=== PATIENT | male | born 1960 | race Asian ===

== ENCOUNTER → 2016-12-11 | Outpatient (CLI) | payer BC ==
[~2016-12-11] MED LIST: /CLON2TA PO; ALPR1TAB3 OR; AMLO10TAB OR; ASPI325T OR; ASPI81TA7 PO; BACT2CRE EX; BACT800T OR; COZA100T2 PO; DILA2TAB OR; FERR325T OR; FOLI1TAB OR; GLUC500T PO; HUMA100I SC; HYDR25TA6 OR; IBUP800T OR; IBUP80TA PO; LEVO750T PO; LISI20TA5 OR; LOPR50TA PO; LOSA50TA20 PO; TYLENOL COLD & FLU PO; [UNRECOGNIZED DRUG - OTHER] EXT
[2016-12-11 06:43] LABS: MEAN CORPUSCULAR HEMOGLOBIN 32.4 pg (27.0-33.0); MEAN CORPUSCULAR HGB CONC 35.5 g/dl (32.0-36.5); MEAN CORPUSCULAR VOLUME 91.2 fl (80.0-96.0); RED CELL DISTRIBUTION WIDTH 11.6 % (11.5-14.5); WHITE BLOOD COUNT 4.1 K/mm3 (4.0-10.0)
[2016-12-11 07:02] LABS: ALBUMIN 4.3 GM/DL (3.2-5.2); ALBUMIN/GLOBULIN RATIO 1.59 (1.00-1.93); BILIRUBIN,TOTAL 0.9 MG/DL (0.2-1.0); CALCIUM LEVEL 9.6 MG/DL (8.5-10.1); CREATININE FOR GFR 1.49 MG/DL (0.70-1.30); GLOMERULAR FILTRATION RATE 51.9 (>56); POTASSIUM SERUM 4.2 MEQ/L (3.5-5.1)
== END ==
LOC: M LAB 06:08
PROVIDERS: ATTEND Student in an Organized Health Care Education/Training Program
DX: Z76.89 Persons encountering health services in other specified circumstances (principal)

== ENCOUNTER → 2016-12-16 | Outpatient (CLI) | payer BC ==
[2016-12-16 14:29] LABS: CALCIUM LEVEL 8.6 MG/DL (8.5-10.1); CREATININE FOR GFR 1.34 MG/DL (0.70-1.30); GLOMERULAR FILTRATION RATE 58.7 (>56); POTASSIUM SERUM 4.2 MEQ/L (3.5-5.1)
== END ==
LOC: M LAB 13:58
PROVIDERS: ATTEND Student in an Organized Health Care Education/Training Program
DX: N17.9 Acute kidney failure, unspecified (principal)

== ENCOUNTER → 2016-12-25 | Outpatient (CLI) | payer BC ==
[2016-12-25 12:46] LABS: ALBUMIN 4.5 GM/DL (3.2-5.2); ALBUMIN/GLOBULIN RATIO 1.96 (1.00-1.93); ALKALINE PHOSPHATASE 81 U/L (45-117); ALT/SGPT 49 U/L (12-78); ANION GAP 8 MEQ/L (8-16); AST/SGOT 35 U/L (15-37); BILIRUBIN,TOTAL 0.8 MG/DL (0.2-1.0); BLOOD UREA NITROGEN 14 MG/DL (7-18); CALCIUM LEVEL 9.4 MG/DL (8.5-10.1); CARBON DIOXIDE LEVEL 28 MEQ/L (21-32); CHLORIDE LEVEL 104 MEQ/L (98-107); CREATININE FOR GFR 0.95 MG/DL (0.70-1.30); GLOMERULAR FILTRATION RATE > 60.0 (>56); GLUCOSE, FASTING 213 MG/DL (70-105); POTASSIUM SERUM 4.3 MEQ/L (3.5-5.1); SODIUM LEVEL 140 MEQ/L (136-145); TOTAL PROTEIN 6.8 GM/DL (6.4-8.2)
== END ==
LOC: M LAB 11:23
PROVIDERS: ATTEND Student in an Organized Health Care Education/Training Program
DX: Z79.899 Other long term (current) drug therapy (principal)

== ENCOUNTER → 2017-01-22 | Outpatient (CLI) | payer BC ==
[2017-01-22 09:59] LABS: ANION GAP 11 MEQ/L (8-16); BLOOD UREA NITROGEN 25 MG/DL (7-18); CALCIUM LEVEL 9.3 MG/DL (8.5-10.1); CARBON DIOXIDE LEVEL 26 MEQ/L (21-32); CHLORIDE LEVEL 106 MEQ/L (98-107); CREATININE FOR GFR 1.11 MG/DL (0.70-1.30); GLOMERULAR FILTRATION RATE > 60.0 (>56); GLUCOSE, FASTING 154 MG/DL (70-105); POTASSIUM SERUM 4.2 MEQ/L (3.5-5.1); SODIUM LEVEL 143 MEQ/L (136-145)
== END ==
LOC: M LAB 09:13
PROVIDERS: ATTEND Student in an Organized Health Care Education/Training Program
DX: I10 Essential (primary) hypertension (principal)

== ENCOUNTER 2017-04-08 18:50 | Emergency (ER) | payer BC ==
[~2017-04-08] VITALS: Ht 190.5 cm; Wt 120.2 kg
[2017-04-08] MEDS ORDERED: METO50TA2 PO (19:03)
[2017-04-08] MEDS ORDERED: ASPI81CH PO (19:03)
--- NOTE | 2017-04-08 20:10 | REPUSA ---
CT of the head Clinical history: Headache, injury. Technique: Multiple axial CT images were obtained through the head without administration of contrast . Comparison: None. Findings: The ventricles and sulci are symmetric bilaterally. There is no evidence of acute hemorrhag e or infarct. There is no midline shift, mass effect, or extra-axial fluid collection. The osseous st ructures are unremarkable. The visualized paranasal sinuses and mastoid air cells are clear There is a large amount of superficial soft tissue swelling the frontal regions bilaterally, extending into th e right lateral frontal region. Impression: No evidence of acute intracranial hemorrhage or infarct. Extensive superficial soft tissu e swelling in the frontal regions bilaterally, extending into the right lateral frontal region.
--- NOTE | 2017-04-08 20:10 | REPUSA ---
CT of the orbits and facial bones without contrast Clinical history: Pain, injury. Technique: Multiple axial CT images were obtained through the facial bones and paranasal sinuses util izing 3 mm axial slices without administration of contrast. Coronal and sagittal reconstructions were also obtained. Findings: The visualized paranasal sinuses are clear. The osteomeatal complexes are patent bilaterall y. The nasal septum is midline. The visualized mastoid air cells are clear. The osseous structures do not demonstrate any acute abnormalities. The superficial soft tissues are diffusely swollen in the f rontal regions bilaterally, with soft tissue swelling extending along the right frontal region as wel l. Extensive soft tissue swelling is seen around the right orbit, extending into the right maxillary region. The globes are intact bilaterally. Impression: 1. No acute fracture. The orbits are intact. 2. Extensive superficial soft tissue swelling in the frontal regions bilaterally, as well as extendin g around the right orbit and right maxillary regions.
[2017-04-08 20:51] VITALS: BP 160/70
== END 2017-04-08 20:56 | disposition home or self-care (01) ==
LOC: M ED 20:47
DX: S05.11XA Contusion of eyeball and orbital tissues, right eye, initial encounter (principal); W10.9XXA Fall (on) (from) unspecified stairs and steps, initial encounter; Y92.019 Unspecified place in single-family (private) house as the place of occurrence of the external cause; Y93.H9 Activity, other involving exterior property and land maintenance, building and construction; Y99.8 Other external cause status; Z79.82 Long term (current) use of aspirin; Z79.899 Other long term (current) drug therapy; Z88.0 Allergy status to penicillin

== ENCOUNTER 2017-04-10 01:44 | Emergency (ER) | payer BC ==
[~2017-04-10] VITALS: Ht 190.5 cm; Wt 120.2 kg
[~2017-04-10 01:44] MED LIST changes: +ASPI81CH PO; +METO50TA2 PO
[2017-04-10 01:55] VITALS: BP 147/92
[2017-04-10] MEDS ORDERED: ASPI325T28 PO (01:58)
[2017-04-10] MEDS ORDERED: METF1000 PO (01:59)
[2017-04-10] MEDS ORDERED: LISI10TA4 PO (02:00)
[2017-04-10] MEDS ORDERED: AMLO10TA2 PO (02:00)
[2017-04-10] MEDS ORDERED: TAB-TAB PO (02:01)
== END 2017-04-10 06:24 | disposition left against medical advice (07) ==
LOC: M ED 02:57
DX: Z53.29 Procedure and treatment not carried out because of patient's decision for other reasons (principal)

== ENCOUNTER 2018-07-15 05:05 | Observation (INO) | payer BC ==
[2018-07-15] MEDS: ONDANSETRON 4MG/2ML VIAL (J2405) IV (06:00)
[2018-07-15] MEDS: LORazepam 2 MG/ML VIAL (J2060) IV ×3 (06:00→07:03)
[2018-07-15] MEDS: NS 1,000 ML IV ×3 (06:00→22:15)
[2018-07-15] MEDS: THIAMINE HCL 200 MG/2 ML VIAL (J3411) IV (06:00)
[2018-07-15] MEDS: OXAZEPAM 15 MG CAP PO (06:01)
[2018-07-15 06:06] LABS: ALBUMIN 4.6 GM/DL (3.2-5.2); ALBUMIN/GLOBULIN RATIO 1.35 (1.00-1.93); ALKALINE PHOSPHATASE 68 U/L (45-117); ALT/SGPT 140 U/L (12-78); ANION GAP 15 MEQ/L (8-16); AST/SGOT 211 U/L (7-37); BILIRUBIN,DIRECT 0.5 MG/DL (0.0-0.2); BILIRUBIN,TOTAL 1.1 MG/DL (0.2-1.0); BLOOD UREA NITROGEN 13 MG/DL (7-18); CALCIUM LEVEL 9.1 MG/DL (8.5-10.1); CARBON DIOXIDE LEVEL 24 MEQ/L (21-32); CHLORIDE LEVEL 96 MEQ/L (98-107); CREATININE FOR GFR 1.22 MG/DL (0.70-1.30); ETHYL ALCOHOL (ETHANOL) 0.094 % (0.000-0.010); GLOMERULAR FILTRATION RATE > 60.0 (>56); GLUCOSE, FASTING 207 MG/DL (70-100); LIPASE 502 U/L (73-393); POTASSIUM SERUM 3.5 MEQ/L (3.5-5.1); SODIUM LEVEL 135 MEQ/L (136-145)
[2018-07-15 06:10] LABS: BASO % 0.2 % (0.0-1.0); EOS # 0.1 10^3/uL (0.0-0.50); EOS % 1.7 % (0.0-3.0); HEMATOCRIT 40.8 % (42.0-52.0); HEMOGLOBIN 14.2 g/dl (13.5-17.5); IMMATURE GRANULOCYTE % 1.3 % (0-3.0); LYMPH # 0.6 10^3/uL (1.5-4.5); MEAN CORPUSCULAR HEMOGLOBIN 32.2 pg (27.0-33.0); MEAN CORPUSCULAR HGB CONC 34.8 g/dl (32.0-36.5); MEAN CORPUSCULAR VOLUME 92.5 fl (80.0-96.0); MONO # 0.6 10^3/uL (0.0-0.8); MONO % 12.1 % (0.0-5.0); NEUTROPHILS # 3.4 10^3/uL (1.8-7.7); NEUTROPHILS % 71.7 % (36.0-66.0); PLATELET COUNT, AUTOMATED 130 10^3/uL (150-450); RED BLOOD COUNT 4.41 10^6/uL (4.30-6.10); RED CELL DISTRIBUTION WIDTH 12.6 % (11.5-14.5); WHITE BLOOD COUNT 4.7 10^3/uL (4.0-10.0)
[2018-07-15 08:20] LABS: AMPHETAMINES LEVEL URINE NEGATIVE (NEGATIVE); BARBITURATES URINE NEGATIVE (NEGATIVE); BENZODIAZEPINES URINE NEGATIVE (NEGATIVE); CANNABINOIDS URINE NEGATIVE (NEGATIVE); COCAINE METABOLITE URINE NEGATIVE (NEGATIVE); METHADONE URINE NEGATIVE (NEGATIVE); OPIATES URINE NEGATIVE (NEGATIVE); PHENCYCLIDINE URINE NEGATIVE (NEGATIVE)
[2018-07-15] MEDS ORDERED: amLODIPine 5 MG TAB PO (09:00)
[2018-07-15] MEDS: SENOKOT S TAB PO ×2 (09:00→20:20)
[2018-07-15] MEDS: amLODIPine 5 MG TAB PO ×2 (09:00→10:30)
[2018-07-15] MEDS: ENOXAPARIN 40 MG/0.4 ML SYRINGE (J1650) SC (09:00)
[2018-07-15] MEDS ORDERED: DEXTROSE 50% 50 ML SYRINGE IV (10:15)
[2018-07-15] MEDS ORDERED: GLUCOSE 4 GM CHEW TABLET PO (10:15)
[2018-07-15] MEDS ORDERED: GLUCAGON FOR INJ 1 MG VIAL (J1610) SC (10:15)
[2018-07-15] MEDS ORDERED: BISACODYL 5 MG TAB PO (10:30)
[2018-07-15] MEDS: THIAMINE 100 MG TAB PO ×2 (10:31→20:20)
[2018-07-15] MEDS: MULTIVITAMINS/MINERALS THERAP 1 TAB PO (10:31)
[2018-07-15] MEDS: FOLIC ACID 1 MG TAB PO (10:31)
[2018-07-15 12:02] LABS: BEDSIDE GLUCOSE 190 MG/DL (70-105)
[2018-07-15] MEDS: LORazepam 2 MG TAB PO ×3 (12:09→14:29)
[2018-07-15] MEDS: HumaLOG INSULIN (NovoLOG) PER UNIT SC ×3 (12:10→20:20)
[2018-07-15] MEDS: LISINOPRIL 20 MG TAB PO (12:15)
[2018-07-15] MEDS ORDERED: LISINOPRIL 10 MG TAB PO (12:15)
[2018-07-15] MEDS: cloNIDine 0.1 MG TAB PO ×2 (13:00→22:00)
[2018-07-15 17:01] LABS: BEDSIDE GLUCOSE 175 MG/DL (70-105)
[2018-07-15] MEDS: NICOTINE 14 MG/24 HR TRANSDERMAL TD (18:41)
[2018-07-15 20:15] LABS: BEDSIDE GLUCOSE 280 MG/DL (70-105)
[2018-07-16] MEDS: LORazepam 2 MG TAB PO (01:21)
[2018-07-16] MEDS: amLODIPine 5 MG TAB PO ×2 (01:22→21:01)
[2018-07-16 05:42] LABS: HEMATOCRIT 33.7 % (42.0-52.0); MEAN CORPUSCULAR HEMOGLOBIN 32.3 pg (27.0-33.0); MEAN CORPUSCULAR HGB CONC 34.1 g/dl (32.0-36.5); MEAN CORPUSCULAR VOLUME 94.7 fl (80.0-96.0); PLATELET COUNT, AUTOMATED 101 10^3/uL (150-450); RED BLOOD COUNT 3.56 10^6/uL (4.30-6.10); RED CELL DISTRIBUTION WIDTH 12.8 % (11.5-14.5); WHITE BLOOD COUNT 3.8 10^3/uL (4.0-10.0)
[2018-07-16 05:48] LABS: HEMOGLOBIN 11.5 g/dl (13.5-17.5)
[2018-07-16 06:00] LABS: ALBUMIN 3.5 GM/DL (3.2-5.2); ALBUMIN/GLOBULIN RATIO 1.35 (1.00-1.93); ALKALINE PHOSPHATASE 48 U/L (45-117); ALT/SGPT 90 U/L (12-78); ANION GAP 11 MEQ/L (8-16); AST/SGOT 99 U/L (7-37); BILIRUBIN,TOTAL 1.1 MG/DL (0.2-1.0); BLOOD UREA NITROGEN 14 MG/DL (7-18); CALCIUM LEVEL 8.3 MG/DL (8.5-10.1); CARBON DIOXIDE LEVEL 26 MEQ/L (21-32); CHLORIDE LEVEL 102 MEQ/L (98-107); CREATININE FOR GFR 1.09 MG/DL (0.70-1.30); GLOMERULAR FILTRATION RATE > 60.0 (>56); GLUCOSE, FASTING 150 MG/DL (70-100); POTASSIUM SERUM 3.2 MEQ/L (3.5-5.1); SODIUM LEVEL 139 MEQ/L (136-145); TOTAL PROTEIN 6.1 GM/DL (6.4-8.2)
[2018-07-16] MEDS: cloNIDine 0.1 MG TAB PO ×3 (06:11→21:01)
[2018-07-16 06:29] LABS: MAGNESIUM LEVEL 1.6 MG/DL (1.8-2.4); PHOSPHORUS LEVEL 2.9 MG/DL (2.5-4.9)
[2018-07-16] MEDS: NICOTINE 14 MG/24 HR TRANSDERMAL TD (07:57)
[2018-07-16] MEDS: MAG SULF 1GM/100ML (MAG RUN) 1 GM in APPROPRIATE DILUENT 1 EA IV ×2 (07:57→09:00)
[2018-07-16] MEDS: FOLIC ACID 1 MG TAB PO (07:58)
[2018-07-16] MEDS: SENOKOT S TAB PO ×2 (07:58→21:01)
[2018-07-16] MEDS: POTASSIUM CHLORIDE 10 MEQ SR TABLET PO (07:58)
[2018-07-16] MEDS: THIAMINE 100 MG TAB PO ×2 (07:58→21:01)
[2018-07-16] MEDS: ENOXAPARIN 40 MG/0.4 ML SYRINGE (J1650) SC (07:58)
[2018-07-16] MEDS: LISINOPRIL 20 MG TAB PO (07:59)
[2018-07-16] MEDS: MULTIVITAMINS/MINERALS THERAP 1 TAB PO (07:59)
[2018-07-16] MEDS: METOPROLOL TART 50 MG TAB PO ×2 (07:59→21:01)
[2018-07-16] MEDS: HumaLOG INSULIN (NovoLOG) PER UNIT SC ×4 (08:00→21:09)
[2018-07-16] MEDS ORDERED: SLF 3 ML SYR IV (08:00)
[2018-07-16 11:53] LABS: BEDSIDE GLUCOSE 168 MG/DL (70-105)
[2018-07-16] MEDS: SLF 3 ML SYR IV ×2 (14:00→21:02)
[2018-07-16 16:54] LABS: BEDSIDE GLUCOSE 287 MG/DL (70-105)
[2018-07-16 21:00] LABS: BEDSIDE GLUCOSE 232 MG/DL (70-105)
[2018-07-17] MEDS: cloNIDine 0.1 MG TAB PO (05:33)
[2018-07-17] MEDS: SLF 3 ML SYR IV (05:34)
[2018-07-17 05:49] LABS: HEMATOCRIT 33.1 % (42.0-52.0); HEMOGLOBIN 11.3 g/dl (13.5-17.5); MEAN CORPUSCULAR HEMOGLOBIN 32.1 pg (27.0-33.0); MEAN CORPUSCULAR HGB CONC 34.1 g/dl (32.0-36.5); PLATELET COUNT, AUTOMATED 108 10^3/uL (150-450); RED BLOOD COUNT 3.52 10^6/uL (4.30-6.10); RED CELL DISTRIBUTION WIDTH 12.9 % (11.5-14.5); WHITE BLOOD COUNT 3.7 10^3/uL (4.0-10.0)
[2018-07-17 06:12] LABS: INR 0.98; PROTHROMBIN TIME 13.1 SECONDS (12.1-14.4)
[2018-07-17 06:13] LABS: PARTIAL THROMBOPLASTIN TIME 25.4 SECONDS (25.4-37.6)
[2018-07-17 06:14] LABS: ALBUMIN 3.4 GM/DL (3.2-5.2); ALBUMIN/GLOBULIN RATIO 1.26 (1.00-1.93); ALKALINE PHOSPHATASE 55 U/L (45-117); ALT/SGPT 73 U/L (12-78); ANION GAP 8 MEQ/L (8-16); AST/SGOT 69 U/L (7-37); BILIRUBIN,TOTAL 0.9 MG/DL (0.2-1.0); BLOOD UREA NITROGEN 14 MG/DL (7-18); CALCIUM LEVEL 8.6 MG/DL (8.5-10.1); CARBON DIOXIDE LEVEL 30 MEQ/L (21-32); CHLORIDE LEVEL 102 MEQ/L (98-107); CREATININE FOR GFR 1.08 MG/DL (0.70-1.30); GLOMERULAR FILTRATION RATE > 60.0 (>56); GLUCOSE, FASTING 164 MG/DL (70-100); POTASSIUM SERUM 3.7 MEQ/L (3.5-5.1); SODIUM LEVEL 140 MEQ/L (136-145); TOTAL PROTEIN 6.1 GM/DL (6.4-8.2)
[2018-07-17] MEDS: THIAMINE 100 MG TAB PO (08:00)
[2018-07-17] MEDS: POTASSIUM CHLORIDE 10 MEQ SR TABLET PO (08:00)
[2018-07-17] MEDS: FOLIC ACID 1 MG TAB PO (08:01)
[2018-07-17] MEDS: MULTIVITAMINS/MINERALS THERAP 1 TAB PO (08:01)
[2018-07-17] MEDS: LISINOPRIL 20 MG TAB PO (08:01)
[2018-07-17] MEDS: NICOTINE 14 MG/24 HR TRANSDERMAL TD (08:02)
[2018-07-17] MEDS: METOPROLOL TART 50 MG TAB PO (08:02)
[2018-07-17] MEDS: ENOXAPARIN 40 MG/0.4 ML SYRINGE (J1650) SC (08:02)
[2018-07-17] MEDS: SENOKOT S TAB PO (08:03)
[2018-07-17] MEDS: HumaLOG INSULIN (NovoLOG) PER UNIT SC (08:03)
[2018-07-17 09:13] LABS: ESTIMATED AVERAGE GLUCOSE 171 MG/DL (60-110); HEMOGLOBIN A1c 7.6 %
[2018-07-17] MEDS ORDERED: amLODIPine 10 MG TAB PO (21:00)
[2018-07-18] MEDS ORDERED: LISINOPRIL 10 MG TAB PO (09:00)
== END 2018-07-17 11:18 | disposition home or self-care (01) ==
LOC: M ED 05:05 → M ED INP 05:06 → M PCU 15:50
DX: F10.239 Alcohol dependence with withdrawal, unspecified (principal); K70.10 Alcoholic hepatitis without ascites; E87.8 Other disorders of electrolyte and fluid balance, not elsewhere classified; E87.6 Hypokalemia; E83.42 Hypomagnesemia; I16.0 Hypertensive urgency; E11.9 Type 2 diabetes mellitus without complications; Z88.0 Allergy status to penicillin
CPT/HCPCS: J2405

== ENCOUNTER → 2018-08-13 | Outpatient (REF) | payer BC ==
[2018-08-13 13:27] LABS: ANION GAP 9 MEQ/L (8-16); BLOOD UREA NITROGEN 24 MG/DL (7-18); CALCIUM LEVEL 9.3 MG/DL (8.5-10.1); CARBON DIOXIDE LEVEL 24 MEQ/L (21-32); CHLORIDE LEVEL 106 MEQ/L (98-107); CHOLESTEROL LEVEL 175 MG/DL (<200); CHOLESTEROL RISK RATIO 4.268 (<5); CREATININE FOR GFR 1.16 MG/DL (0.70-1.30); GLOMERULAR FILTRATION RATE > 60.0 (>56); GLUCOSE, FASTING 177 MG/DL (70-100); HDL CHOLESTEROL 41 MG/DL (>40); LDL CHOLESTEROL 117 MG/DL (<100); NON-HDL-C 134 MG/DL; POTASSIUM SERUM 5.2 MEQ/L (3.5-5.1); SODIUM LEVEL 139 MEQ/L (136-145); TRIGLYCERIDES LEVEL 84 MG/DL (<150)
[2018-08-13 13:29] LABS: BASO % 0.2 % (0.0-1.0); EOS # 0.3 10^3/uL (0.0-0.50); EOS % 4.7 % (0.0-3.0); HEMATOCRIT 37.5 % (42.0-52.0); HEMOGLOBIN 12.6 g/dl (13.5-17.5); IMMATURE GRANULOCYTE % 0.9 % (0-3.0); LYMPH # 0.9 10^3/uL (1.5-4.5); LYMPH % 16.3 % (24.0-44.0); MEAN CORPUSCULAR HEMOGLOBIN 31.3 pg (27.0-33.0); MEAN CORPUSCULAR HGB CONC 33.6 g/dl (32.0-36.5); MEAN CORPUSCULAR VOLUME 93.3 fl (80.0-96.0); MONO # 0.6 10^3/uL (0.0-0.8); MONO % 11.8 % (0.0-5.0); NEUTROPHILS # 3.5 10^3/uL (1.8-7.7); NEUTROPHILS % 66.1 % (36.0-66.0); PLATELET COUNT, AUTOMATED 199 10^3/uL (150-450); RED BLOOD COUNT 4.02 10^6/uL (4.30-6.10); RED CELL DISTRIBUTION WIDTH 12.2 % (11.5-14.5); WHITE BLOOD COUNT 5.3 10^3/uL (4.0-10.0)
[2018-08-13 15:12] LABS: ESTIMATED AVERAGE GLUCOSE 177 MG/DL (60-110); HEMOGLOBIN A1c 7.8 %
== END ==
LOC: M LABDRWAD 12:28
DX: Z00.00 Encounter for general adult medical examination without abnormal findings (principal)
CPT/HCPCS: 84443

== ENCOUNTER → 2018-09-03 | Outpatient (REF) | payer BC ==
[2018-09-03 14:08] LABS: BASO % 0.2 % (0.0-1.0); EOS # 0.2 10^3/uL (0.0-0.50); EOS % 3.2 % (0.0-3.0); HEMATOCRIT 35.9 % (42.0-52.0); HEMOGLOBIN 12.3 g/dl (13.5-17.5); IMMATURE GRANULOCYTE % 1.5 % (0-3.0); LYMPH # 1.2 10^3/uL (1.5-4.5); LYMPH % 18.3 % (24.0-44.0); MEAN CORPUSCULAR HEMOGLOBIN 31.3 pg (27.0-33.0); MEAN CORPUSCULAR HGB CONC 34.3 g/dl (32.0-36.5); MEAN CORPUSCULAR VOLUME 91.3 fl (80.0-96.0); MONO # 0.8 10^3/uL (0.0-0.8); MONO % 11.6 % (0.0-5.0); NEUTROPHILS # 4.3 10^3/uL (1.8-7.7); NEUTROPHILS % 65.2 % (36.0-66.0); PLATELET COUNT, AUTOMATED 238 10^3/uL (150-450); RED BLOOD COUNT 3.93 10^6/uL (4.30-6.10); RED CELL DISTRIBUTION WIDTH 12.1 % (11.5-14.5); WHITE BLOOD COUNT 6.6 10^3/uL (4.0-10.0)
[2018-09-03 14:36] LABS: ANION GAP 7 MEQ/L (8-16); BLOOD UREA NITROGEN 24 MG/DL (7-18); CALCIUM LEVEL 9.4 MG/DL (8.5-10.1); CARBON DIOXIDE LEVEL 27 MEQ/L (21-32); CHLORIDE LEVEL 102 MEQ/L (98-107); CHOLESTEROL LEVEL 177 MG/DL (<200); CHOLESTEROL RISK RATIO 5.531 (<5); CREATININE FOR GFR 1.37 MG/DL (0.70-1.30); GLOMERULAR FILTRATION RATE 56.8 (>56); GLUCOSE, FASTING 224 MG/DL (70-100); HDL CHOLESTEROL 32 MG/DL (>40); LDL CHOLESTEROL 119 MG/DL (<100); NON-HDL-C 145 MG/DL; POTASSIUM SERUM 5.1 MEQ/L (3.5-5.1); SODIUM LEVEL 136 MEQ/L (136-145); TRIGLYCERIDES LEVEL 128 MG/DL (<150)
[2018-09-03 15:43] LABS: MAU/CREAT RATIO 168.6 MCG/MG (0.0-30.0)
[2018-09-03 18:01] LABS: ESTIMATED AVERAGE GLUCOSE 206 MG/DL (60-110); HEMOGLOBIN A1c 8.8 %
== END ==
LOC: M LABDRWAD 12:12
DX: E11.9 Type 2 diabetes mellitus without complications (principal)
CPT/HCPCS: 84443

== ENCOUNTER → 2018-09-30 | Outpatient (REF) | payer BC ==
[2018-09-30 14:23] LABS: BASO % 0.2 % (0.0-1.0); EOS # 0.2 10^3/uL (0.0-0.50); EOS % 3.3 % (0.0-3.0); HEMOGLOBIN 13.2 g/dl (13.5-17.5); IMMATURE GRANULOCYTE % 0.5 % (0-3.0); LYMPH % 15.4 % (24.0-44.0); MEAN CORPUSCULAR HGB CONC 33.8 g/dl (32.0-36.5); MEAN CORPUSCULAR VOLUME 91.5 fl (80.0-96.0); MONO # 0.6 10^3/uL (0.0-0.8); MONO % 8.5 % (0.0-5.0); NEUTROPHILS # 4.7 10^3/uL (1.8-7.7); NEUTROPHILS % 72.1 % (36.0-66.0); PLATELET COUNT, AUTOMATED 244 10^3/uL (150-450); RED BLOOD COUNT 4.26 10^6/uL (4.30-6.10); RED CELL DISTRIBUTION WIDTH 12.6 % (11.5-14.5); WHITE BLOOD COUNT 6.6 10^3/uL (4.0-10.0)
[2018-09-30 14:58] LABS: ANION GAP 13 MEQ/L (8-16); BLOOD UREA NITROGEN 28 MG/DL (7-18); CALCIUM LEVEL 9.5 MG/DL (8.5-10.1); CARBON DIOXIDE LEVEL 23 MEQ/L (21-32); CHLORIDE LEVEL 102 MEQ/L (98-107); CREATININE FOR GFR 1.41 MG/DL (0.70-1.30); FOLATE > 24.0 NG/ML; GLUCOSE, FASTING 245 MG/DL (70-100); POTASSIUM SERUM 4.9 MEQ/L (3.5-5.1); SODIUM LEVEL 138 MEQ/L (136-145)
== END ==
LOC: M LABDRWAD 12:41
DX: I10 Essential (primary) hypertension (principal); D64.9 Anemia, unspecified
CPT/HCPCS: 82746

== ENCOUNTER → 2018-10-01 | Outpatient (CLI) | payer BC | LOC: M ADAMS 08:17 | DX: M25.78 Osteophyte, vertebrae (principal); R53.1 Weakness; M54.31 Sciatica, right side | CPT/HCPCS: 72100 ==

== ENCOUNTER → 2018-10-15 | Outpatient (REF) | payer BC ==
[2018-10-15 13:11] LABS: ANION GAP 6 MEQ/L (8-16); BLOOD UREA NITROGEN 22 MG/DL (7-18); CALCIUM LEVEL 9.4 MG/DL (8.5-10.1); CARBON DIOXIDE LEVEL 29 MEQ/L (21-32); CHLORIDE LEVEL 101 MEQ/L (98-107); CREATININE FOR GFR 1.29 MG/DL (0.70-1.30); GLOMERULAR FILTRATION RATE > 60.0 (>56); GLUCOSE, FASTING 224 MG/DL (70-100); POTASSIUM SERUM 4.8 MEQ/L (3.5-5.1); SODIUM LEVEL 136 MEQ/L (136-145)
== END ==
LOC: M LABDRWAD 12:23
DX: I10 Essential (primary) hypertension (principal)
CPT/HCPCS: 80048

== ENCOUNTER → 2019-12-08 | Outpatient (REF) ==
[~2019-12-08] MED LIST changes: -/CLON2TA PO; +AMLO10TA5 PO; +ASPI-527 PO; -ASPI81CH PO; +ASPI81CH49 PO; +CARV12.5 PO; +CLON-413 PO; +FOLI1TAB11 PO; +LISI-538 PO; +LISI10TA4 PO; +LOPR1TAB6 PO; +METF10004 PO; -METO50TA2 PO; +METO50TA7 PO; +OXAZ10CA3 PO; +TAB-TAB PO; +THIA100TA PO; +VITMTA PO
== END ==
LOC: M LAB 10:50